=== PATIENT | female | born 1975 | race Caucasian/White ===

== ENCOUNTER 2017-03-30 14:16 | Emergency (ER) | payer SELFPAY ==
[~2017-03-30] VITALS: Ht 162.6 cm; Wt 66.2 kg
[~2017-03-30 14:16] MED LIST: ELAVIL10 MG PO; FLOMAX0.4 MG PO; HYDROCODON-ACE1 EAC7 PO; NAPROXEN500 MG PO; SEASONALE,JO1 TABLET; VENTOLIN HFA18 GM IH; VERAPAMIL ER120 M1; VERAPAMIL HCL80 MG PO; ZOFRAN ODT4 MG PO
[2017-03-30 15:04] LABS: HEMATOCRIT 42.3 % (36.0-46.0); MCH 30.7 PG (29.0-34.0); MCHC 33.6 G/DL (30.0-36.0); MCV 91.6 FL (83-99); MEAN PLAT.VOLUME 10.1 uM^3 (9.5-12.4); PLATELET COUNT 250 K/uL (156-360); RBC DIS.WIDTH-CV 12.6 % (11.8-14.6); RBC DIS.WIDTH-SD 42.3 % (39-53); RED BLOOD COUNT 4.62 M/uL (3.80-5.20); WHITE BLOOD COUNT 5.8 K/uL (4.1-10.2)
[2017-03-30 15:10] LABS: ADD MIUA? YES; BILIRUBIN NEGATIVE; BLOOD SMALL; COLOR YELLOW ((YELLOW)); GLUCOSE (STRIP) NEGATIVE; KETONES 5; LEUKOCYTES NEGATIVE; NITRITE NEGATIVE; PROTEIN (STRIP) NEGATIVE; SPECIFIC GRAVITY 1.015 (1.000-1.030); UROBILINOGEN 0.2 MG/DL (0.2-1.0)
[2017-03-30 15:15] LABS: BACTERIA NONE SEEN /HPF; EPITHELIAL CELLS RARE /HPF; MUCUS TRACE /LPF; UCUL ADDED? NO; WHITE BLOOD CELLS 0-5 /HPF (0-5)
[2017-03-30 15:19] LABS: CHLORIDE 108 mEq/L (99-109); POTASSIUM 4.1 mEq/L (3.7-5.4); SODIUM 137 mEq/L (136-147)
[2017-03-30 15:20] LABS: GLUCOSE 99 mg/dL (70-99)
[2017-03-30 15:22] LABS: ANION GAP 5 MEQ/L (2-14)
[2017-03-30 15:24] LABS: GFR ESTIMATE (CALCULATED) > 59 mL/min/
[2017-03-30 15:25] LABS: UREA NITROGEN (BUN) 8 mg/dL (9-23)
[2017-03-30 15:33] LABS: QUANTITATIVE HCG < 4.0 MIU/ML
[2017-03-30] MEDS ORDERED: LORTAB 5-325 M1 EACH PO (17:45)
[2017-03-30] MEDS ORDERED: NAPROSYN500 MG PO (17:45)
[2017-03-30] MEDS ORDERED: FLOMAX0.4 MG PO (17:45)
[2017-03-30 18:17] VITALS: BP 173/107
== END 2017-03-30 18:19 | disposition home or self-care (01) ==
LOC: EME 14:16
DX: N20.0 Calculus of kidney (principal); Z87.442 Personal history of urinary calculi; I10 Essential (primary) hypertension; J45.909 Unspecified asthma, uncomplicated; Z82.49 Family history of ischemic heart disease and other diseases of the circulatory system
CPT/HCPCS: 74020; 76770; 80048; 81003; 84702; 85027; 99281; 99284; J1885